=== PATIENT | male | born 1960 | race Caucasian/White ===

== ENCOUNTER 2019-06-18 11:26 | Observation (INO) ==
--- NOTE | 2019-06-18 12:00 | EKG Report ---
Test Performed on : 06/18/2019 11:29:02 AM Test Reason : CHEST PAIN Blood Pressure : / mmHG Vent. Rate : 102 BPM Atrial Rate : 102 BPM P-R Int : 152 ms QRS Dur : 084 ms QT Int : 342 ms P-R-T Axes : 022 041 027 degrees QTc Int : 445 ms Sinus tachycardia. Otherwise normal ECG No previous ECGs available Unconfirmed Result
[2019-06-18 12:11] LABS: BASO# 0.03 X1000 (0.0-0.2); BASO% 0.8 % (0.0-0.8); EOS# 0.04 X1000 (0.0-0.7); HEMATOCRIT 46.7 % (42.0-52.0); HEMOGLOBIN 15.5 g/dL (14.0-18.0); LYMPH# 0.74 X1000 (1.2-3.4); LYMPH% 18.7 % (20.5-51.1); MCHC 33.2 g/dL (33-37); MCV 93.4 FL (81-99); MONO# 0.35 X1000 (0.11-0.59); MONO% 8.9 % (1.7-9.3); NEUT# 2.79 X1000 (1.4-6.5); NEUT% 70.6 % (42.2-75.2); PLT 216 X1000 (130-400); RDW 14.2 % (11.5-14.5); WBC 3.95 X1000 (4.8-10.8)
[2019-06-18 12:14] LABS: INR 0.92; PROTIME 12.4 Seconds (11.0-16.0)
[2019-06-18 12:15] LABS: PTT 23.7 Seconds (22.3-41.8)
--- NOTE | 2019-06-18 12:17 | Diag Imaging Result Doc PS360 ---
CHEST-1 VIEW - 06/18/2019 INDICATION: cp COMPARISON: None FINDINGS: The lungs are normally expanded and clear. Heart size and mediastinal contours are normal. No pneumothorax or pleural effusion. IMPRESSION: Negative exam. Electronically signed by Rolf Preciado 06/18/2019 12:15 PM
[2019-06-18 12:29] LABS: AGAP 11; ALB/GLOB RATIO 1.7; ALBUMIN 4.2 g/dL (3.5-5.0); ALKALINE PHOSPHATASE 57 U/L (32-122); BUN 15 mg/dL (8-22); CALCIUM 8.9 mg/dL (8.8-10.2); CHLORIDE 104 mmol/L (98-107); COSMO 282; CREATININE 1.2 mg/dL (0.7-1.2); ESTIMATED GFR > 60; GLUCOSE 168 mg/dL (70-104); GOT 19 U/L (10-34); GPT 23 U/L (10-44); POTASSIUM 4.6 mmol/L (3.5-5.1); SODIUM 139 mmol/L (136-145); TCO2 24 mmol/L (25-35); TOTAL BILIRUBIN 0.22 mg/dL (0.20-1.00); TOTAL PROTEIN 6.7 g/dL (6.3-8.3)
[2019-06-18] MEDS ORDERED: ZOFRAN IV PRN (15:01)
[2019-06-18] MEDS ORDERED: GLUCOPHAGE PO SCH (17:00)
--- NOTE | 2019-06-18 18:14 | HISTORY AND PHYSICAL ---
ADDENDUM: Mr. Green has been admitted for chest pain. According to him, he has been having this chest pressure for the past 3 days, which has been on and off. However, this morning he was at work and he had this terrible retrosternal chest pain that radiated to his neck and the left arm. It made him feel nauseated and dizzy, so he came to the emergency room where he was evaluated. On presentation, his blood pressure was 126/86. OBJECTIVE: His current physical exam for the most part is unremarkable.Lungs: Clear to auscultation. No crepitations. No rhonchi. Cardiovascular: Regular rate and rhythm. Abdomen: Soft, nontender. Bowel sounds present. Extremities: No pedal edema. 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 LABORATORY DATA: CBC has been reviewed. Chemistry is also unremarkable. Patient's glucose is 168. So far, his troponin 2 times have all been below normal range. His TSH is 1.10. DIAGNOSTIC STUDIES: His chest x-ray which was done was negative. His EKG also shows normal sinus rhythm, normal axis, with no ST-segment abnormality or T-waves abnormality. ASSESSMENT: 1. Mr. Green is a 58-year-old with multiple coronary risk factors, including diabetes, hypertension, obesity, chronic tobacco use, and a family history of heart attack. He comes in with atypical chest pain which is concerning for coronary artery disease. We are going to trend his troponins. We will repeat his EKG in the morning and get a stress test. Depending on the result, we will get Cardiology to evaluate him as well. 2. Diabetes mellitus. We will withhold the metformin for now and use just insulin regimen. We will also get his A1c. I think the patient can be discharged back to his metformin if there are not any contraindications. 3. Hypertension, controlled on losartan. 4. Tobacco use and abuse. Patient has been counseled. 5. Please refer to the details of the History and Physical which have been dictated by the DENT REMOVER in the chart. cc: Minh Negrete MD
--- NOTE | 2019-06-18 18:28 | HISTORY AND PHYSICAL ---
CHIEF COMPLAINT: Chest pain. HPI: This is a 58-year-old gentleman with a history of diabetes mellitus, hypertension, who presented to the emergency room complaining of chest pain that radiates to his left neck and left jaw, and left arm. He states that it feels like a tightness type pain, that will last about 10 to 15 minutes and is spontaneously resolved. He has had some episodes of shortness of breath during this time. He denied any palpitations, any syncope, any nausea. PAST MEDICAL HISTORY: 1. Diabetes mellitus. 2. Hyperlipidemia. 3. Hypertension. PAST SURGICAL HISTORY: Cervical fusion, appendectomy, and left shoulder surgery. SOCIAL HISTORY: He denies any alcohol, tobacco, or illicit drug use. ALLERGIES: No known drug allergies. HOME MEDICATIONS: Xanax, levothyroxine, losartan, and metformin. Doses will be verified by the nursing staff. FAMILY HISTORY: Positive for hypertension and diabetes in parents and grandparents. REVIEW OF SYSTEMS: Discussed with the patient with pertinent positives stated in HPI. He denied any syncope or dizziness, any palpitations, any productive cough, fever, chills, PND, orthopnea, any nausea, vomiting, diarrhea, constipation, black or bloody vomitus or stools, any hematuria, dysuria, frequency, urgency. PHYSICAL EXAMINATION: GENERAL: This is a 58-year-old gentleman who is sitting up on the stretcher in the emergency room in no distress. VITAL SIGNS: Blood pressure is 136/90 with a heart rate of 89, respirations are 18, temperature is 98 degrees oral with room air saturations 95 to 98 percent. EYES: Pupils equal, round, react to light. EOMs are intact sclerae anicteric. HEENT: Head is normocephalic, atraumatic. Mucous membranes are moist. NECK: Supple with trachea midline. CARDIOVASCULAR: Regular rate and rhythm. S1, S2 appreciated. Calves are nontender bilateral with peripheral pulses palpable x4 extremities. PULMONARY: Breath sounds are clear. No increased work of breathing noted. GASTROINTESTINAL: Abdomen is soft, nontender, nondistended with bowel sounds in all 4 quadrants. GENITOURINARY: No CVA or suprapubic tenderness. NEUROLOGIC: He is alert and oriented x3. SKIN: Warm and dry. LABS: WBC is 3.9 with hemoglobin 15.5, hematocrit 46.7, and platelets 216,000. Sodium 139, potassium 4.6, BUN 15, creatinine 1.2 with a glucose of 168. Troponin is 0.014 with CPK 155. TSH is 1.10. Chest x-ray: Lungs are normally expanded and clear. Heart size and mediastinal contours are normal. No pneumothorax or pleural effusion. EKG is sinus tachycardia at a rate of 103. ASSESSMENT AND PLAN: 1. Chest pain. 2. Shortness of breath. 3. Diabetes mellitus. 4. Hypertension. 5. Hypothyroidism. PLAN: The patient will be admitted to the hospital and placed on telemetry. trend cardiac profile and troponin. EKG, Cardiac profile ans troponin tonight at 8 cardiac profile and troponin,lipid profile and TSH ,CBC, CMP, hemoglobin A1c. in AM. NPO after midnight for myocardial perfusion scan as long as cardiac enzymes are negative. pattern blood glucose with sliding scale insulin. The plan was discussed with Dr. Negrete. Further treatments pending hospital course. Dictated by DAPHNE Adhikari for Minh Negrete MD cc: DAPHNE Adhikari MD [facility]
--- NOTE | 2019-06-18 18:34 | EKG Report ---
Test Performed on : 06/18/2019 6:06:33 PM Test Reason : CP Blood Pressure : / mmHG Vent. Rate : 075 BPM Atrial Rate : 075 BPM P-R Int : 156 ms QRS Dur : 094 ms QT Int : 386 ms P-R-T Axes : 038 054 047 degrees QTc Int : 431 ms Normal sinus rhythm. Normal ECG When compared with ECG of 18-JUN-2019 11:29, (Unconfirmed) No significant change was found Confirmed by Ben Morris MD ([id number]) on 06/19/2019 7:32:15 AM
[2019-06-18] MEDS: HUMALOG SUBQ SCH (22:10)
[2019-06-19 05:50] LABS: HEMATOCRIT 47.8 % (42.0-52.0); HEMOGLOBIN 16.2 g/dL (14.0-18.0); MCH 31.8 PG (27-31); MCHC 33.9 g/dL (33-37); MCV 93.7 FL (81-99); MPV 11.4 FL (7.4-10.4); RBC 5.1 XMIL (4.7-6.1); RDW 14.5 % (11.5-14.5); WBC 4.2 X1000 (4.8-10.8)
[2019-06-19 06:44] LABS: AGAP 13; ALB/GLOB RATIO 1.8; ALBUMIN 4.2 g/dL (3.5-5.0); ALKALINE PHOSPHATASE 69 U/L (32-122); BUN 14 mg/dL (8-22); CALCIUM 8.3 mg/dL (8.8-10.2); CHLORIDE 104 mmol/L (98-107); CHOLESTEROL 233 mg/dL (0-200); COSMO 284; CREATININE 0.9 mg/dL (0.7-1.2); ESTIMATED GFR > 60; GLUCOSE 173 mg/dL (70-104); GOT 16 U/L (10-34); GPT 19 U/L (10-44); HDL 23 mg/dL (35-55); POTASSIUM 4.1 mmol/L (3.5-5.1); SODIUM 140 mmol/L (136-145); TCO2 23 mmol/L (25-35); TOTAL BILIRUBIN 0.22 mg/dL (0.20-1.00); TOTAL PROTEIN 6.6 g/dL (6.3-8.3); TRIGLYCERIDES 1040 mg/dL (39-160); VLDL 208 mg/dL
[2019-06-19] MEDS: HUMALOG SUBQ SCH ×4 (06:51→21:16)
[2019-06-19] MEDS ORDERED: PRILOSEC PO SCH (07:00)
--- NOTE | 2019-06-19 07:15 | EKG Report ---
Test Performed on : 06/19/2019 07:05:03 AM Test Reason : CP Blood Pressure : / mmHG Vent. Rate : 077 BPM Atrial Rate : 077 BPM P-R Int : 156 ms QRS Dur : 090 ms QT Int : 404 ms P-R-T Axes : 047 084 056 degrees QTc Int : 457 ms Sinus rhythm. with premature atrial complexes. Otherwise normal ECG Confirmed by Alexandra CAMPOS, Ben Brown ([id number]) on 06/19/2019 7:32:37 AM
[2019-06-19] MEDS ORDERED: LEXISCAN ONE (08:41)
[2019-06-19] MEDS: COZAAR PO SCH (11:40)
[2019-06-19] MEDS: SYNTHROID PO SCH (11:41)
--- NOTE | 2019-06-19 13:17 | PROGRESS NOTE ---
DATE: 06/19/2019 SUBJECTIVE: This morning, Mr. Green refers to be doing well. He denies any new complaints. However, he said he did have mild chest pain early on today, and it appears that when was on the treadmill, he also had another episode of chest pain. OBJECTIVE: Current Vital Signs: Blood pressure is 157/96, pulse of 93, respirations 14, temperature 97.8 degrees. General: Mr. Green is a 58-year-old gentleman. He is in bed. No distress. HEENT: Mucosa is pink and moist. Anicteric. Acyanotic. Neck: Supple. Chest: Clear to auscultation. Cardiovascular: Regular rate and rhythm. GI: Abdomen was soft, nontender. Bowel sounds present. Extremities: No pedal edema. 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 LABORATORY DATA: WBC is 4.30, hemoglobin is 16.2, platelet count of 226,000. Chemistry is also reviewed and is completely within normal range. Glucose is 172. The patient's A1c is 7.0. Triglycerides is 1040, cholesterol is 2300, the patient's HDL is 23. ASSESSMENT: 1. Atypical chest pain with multiple risk factors concerning for coronary artery disease. The patient refers to have had some chest pain during the stress test. We therefore will consult Cardiology to evaluate him, and will also be pending the stress test results. 2. Diabetes mellitus with A1c of 7.0. The patient is only on metformin at home, which I think is adequate for now. We will continue with insulin regimen, and resume her oral medication once she is ready for discharge. 3. Dyslipidemia with severe triglyceridemia. The patient has been started on statin and fenofibrate. 4. Hypertension is controlled. 5. Tobacco use and abuse prior to hospitalization. The patient is counseled. In general, I think Mr. Green is doing well. He seems to have had a mild episode of chest pain during the stress test. We are getting Cardiology to see him. We are also pending the official report on the stress test. His lipid panel is remarkably abnormal. He has been started on medications, and will be pending recommendations from Cardiology. cc: Minh Negrete MD
[2019-06-19] MEDS: LIPITOR PO SCH (13:51)
[2019-06-19] MEDS: TRICOR PO SCH (13:52)
--- NOTE | 2019-06-19 16:00 | Diag Imaging Result Document ---
PROCEDURE NAME: MYOCARDIAL PERF SCAN, STR/REST - 06/19/2019 PROCEDURE: Rest/stress walking Lexiscan myocardial perfusion study. INDICATION: Chest pain, coronary heart disease. DESCRIPTION: The patient came into the nuclear laboratory, received resting injection of technetium 99 sestamibi 14.3 mCi. Multiple tomographic views of the cardiac structures were obtained at rest. Subsequently, the patient walked on the treadmill. He walked on the treadmill using Ramon protocol for 8 minutes 15 seconds. He stopped the treadmill because of chest pain. He only achieved a maximum rate of 115 beats per minute, which was deemed to be way too low for the test to be diagnostic. The ECG showed no ischemic changes. The peak blood pressure at that time was 175/90. The workload was close to 10 METS. At that point, the decision was made to switch from treadmill Ramon protocol to a walking Lexiscan protocol. He received 0.4 mg of Lexiscan while walking on the treadmill. The heart rate increased from 96 to 122 beats per minute, blood pressure actually came down from 182/85 to 152/82. The patient reported chest pain. The ECG showed no again no ischemic changes. Following completion of the test, the heart rate and blood pressure returned back to baseline. The chest pain resolved during the recovery phase. In summary, the electrocardiographic response to a treadmill exercise protocol was nondiagnostic, however the patient did complain of chest pain. With the walking Lexiscan protocol, the same thing happened. He did develop chest pain without ischemic changes. SUMMARY OF THE MYOCARDIAL PERFUSION PORTION OF THE STUDY: Poststress tomographic views of the left ventricle showed moderately extensive moderately severe inferior wall defect. This involves the left basal to mid portion of the inferior wall. There is a trivial defect at the apex of the left ventricle. The rest images suggest partial reversibility in the mid section of the defect. Polar plots revealed the same. There is suggestion of a basal inferior scar with minimal degree of ischemia in the mid section of the inferior wall. The possibility of attenuation artifact cannot be entirely excluded. The patient is 224 pounds. Gated SPECT shows preserved ejection fraction of 70%. Lung/heart ratio is 0.39. TID is 0.93. SUMMARY: This study shows: 1. Equivocal exercise ECG stress test. The patient achieved less than 85% of maximum predicted heart rate for his age, switched to walking Lexiscan protocol. He did develop chest pain both with the treadmill protocol and with the walking Lexiscan protocol, however, no ischemia was noted on the ECG. The chest pain was very suspicious for angina pectoris. 2. Abnormal poststress myocardial perfusion scan. There is scintigraphic suggestion of a basal to mid inferior wall scar plus mild degree of inducible ischemia in the mid section of the scar. 3. Preserved left ventricular systolic function, ejection fraction of 70% with normal ventricular volumes, no wall motion abnormality. The study indicates increased risk for ischemic events. cc: MD Minh Cortez MD
[2019-06-19] MEDS ORDERED: LOVENOX SUBQ ONE (23:00)
--- NOTE | 2019-06-20 00:05 | CONSULTATION ---
DATE OF CONSULTATION: 06/19/2019 IMPRESSION: 1. Chest discomfort suspicious for angina. 2. Abnormal Lexiscan myocardial perfusion study. Interpreted is suggestion of a basal inferior scar with mild with minimal degree of ischemia in the mid section of the inferior wall. The patient had normal left ventricular ejection fraction. He had chest discomfort with stress protocol which was a walking Lexiscan protocol that was felt to be suspicious for angina. Exercise EKG was equivocal. 3. Chronic cigarette use. 4. Type 2 diabetes mellitus. 5. Mixed hyperlipidemia. 6. Hypertension. RECOMMENDATIONS: 1. Continue aspirin daily. 2. Given clinical presentation and abnormal myocardial perfusion study, favor further evaluation with cardiac catheterization selective coronary angiography. The rationale for this approach was thoroughly discussed with the patient and his including potential hazards. The patient also advised that should he require coronary angioplasty/stenting, transfer to [facility] will be needed. The patient strongly expressed desire to transfer to [facility] to have the procedure done there as he lives in [place] and prefers to have his procedure all in one day. This is certainly reasonable and the patient will be made NPO tonight after midnight, and [facility] will be contacted in the a.m. to try to expedite transfer. 3. Agree with initiation of atorvastatin and fenofibrate. HISTORY OF PRESENT ILLNESS: This 58-year-old white male with a past history of type 2 diabetes mellitus, hypertension, mixed hyperlipidemia and chronic cigarette use was admitted to the emergency room yesterday after he presented with chest pain suspicious for angina. He lives in [place]. 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 While walking in the course of his work he felt abrupt onset of substernal chest pressure with radiation to the jaw and teeth. There was also radiation to the left upper extremity. He felt quite uncomfortable. There was some associated shortness of breath. The symptoms lasted perhaps 10 minutes and resolved spontaneously. He relates some occasional milder instances of similar chest discomfort over the last 3 days. He has had some brief recurrence of chest discomfort while in the hospital. He underwent stress myocardial perfusion study today, which was abnormal prompting Cardiology consultation. PAST MEDICAL HISTORY: 1. Type 2 diabetes mellitus. 2. Hyperlipidemia. 3. Hypertension. PAST SURGICAL HISTORY: Includes cervical fusion surgery, appendectomy, and unspecified left shoulder surgery. ALLERGIES: He has no known drug allergies. MEDICATIONS PRIOR TO ADMISSION: As listed. SOCIAL HISTORY: He is . He lives in [place], [place]. 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 He smokes a pack of cigarettes daily. He drinks an infrequent alcoholic beverage. FAMILY HISTORY: Positive for coronary disease. REVIEW OF SYSTEMS: Pulmonary: Noncontributory beyond the history of present illness. Gastrointestinal: Noncontributory beyond the history of present illness. Constitutional: Noncontributory beyond the history of present illness. Remainder of the review of systems is negative/noncontributory beyond the history present illness with 14 total systems reviewed. PHYSICAL EXAMINATION: General: This is a overweight middle-aged white male in no distress on room air. Vital signs: Blood pressure 106/56, heart rate 85, oxygen saturation 99% on room air. HEENT: Extraocular muscles appear intact. Mucous membranes are moist. Neck: Supple. No jugular venous distention. There were no carotid bruits. Chest: Clear to auscultation bilaterally. Cardiac: Reveals a regular rate and rhythm without appreciable murmur or gallop. Abdomen: Soft. Bowel sounds normal. Extremities: Without edema. Neurologic: Reveals him to be alert and fully oriented. Speech is fluent. He moves all 4 extremities equally well. Skin: Warm and dry. Psychiatric: Reveals his mood to be appropriate. IMAGING DATA: Twelve lead EKG obtained 06/18/2019 on admission demonstrates sinus tachycardia at 102 beats per minute, and low voltage QRS in limb leads. LABORATORY DATA: Includes white blood cell count of 4.2, hematocrit 47.8, hemoglobin 16.2, platelet count 226,000. Sodium 140, potassium 4.1, chloride 104, carbon dioxide 23, BUN 14, creatinine 0.9, glucose 173, hemoglobin A1c 7.0, CPK 155, follow up CPK 125. Initial troponin T 0.014, with follow up troponin Ts of 0.021, 0.024, and 0.030. Protime 12.4, INR 0.92, PTT 23.7. Triglycerides 1140, total cholesterol 233, the LDL cholesterol calculated 208, HDL cholesterol 23. Walking Lexiscan sestamibi study reports equivocal exercise ECG stress, abnormal myocardial perfusion study reporting mixed scar inducible ischemia in the inferior wall, and normal left ventricular ejection fraction. The patient had chest symptoms with stress protocol consistent with angina. cc: Salas Fabian MD
[2019-06-20] MEDS: ASPIRIN PO SCH ×2 (01:02→08:04)
[2019-06-20 05:16] LABS: INR 0.92; PROTIME 12.4 Seconds (11.0-16.0)
[2019-06-20 05:17] LABS: PTT 26.8 Seconds (22.3-41.8)
[2019-06-20 05:33] LABS: AGAP 12; BUN 16 mg/dL (8-22); CHLORIDE 105 mmol/L (98-107); COSMO 287; CREATININE 0.9 mg/dL (0.7-1.2); ESTIMATED GFR > 60; GLUCOSE 215 mg/dL (70-104); MAGNESIUM 2.3 mg/dL (1.5-2.7); POTASSIUM 3.9 mmol/L (3.5-5.1); SODIUM 140 mmol/L (136-145); TCO2 23 mmol/L (25-35)
[2019-06-20] MEDS: HUMALOG SUBQ SCH ×3 (06:15→16:00)
--- NOTE | 2019-06-20 06:48 | EKG Report ---
Test Performed on : 06/20/2019 06:42:08 AM Test Reason : [facility] Blood Pressure : / mmHG Vent. Rate : 077 BPM Atrial Rate : 077 BPM P-R Int : 154 ms QRS Dur : 092 ms QT Int : 372 ms P-R-T Axes : 062 099 -08 degrees QTc Int : 420 ms Normal sinus rhythm. Rightward axis Abnormal QRS-T angle, consider primary T wave abnormality Abnormal ECG Confirmed by Alexandra CAMPOS, Ben Brown ([id number]) on 06/20/2019 7:45:20 AM
[2019-06-20] MEDS: SYNTHROID PO SCH (08:03)
[2019-06-20] MEDS: LIPITOR PO SCH (08:03)
[2019-06-20] MEDS: TRICOR PO SCH (08:03)
[2019-06-20] MEDS: COZAAR PO SCH (08:04)
--- NOTE | 2019-06-20 13:35 | PROVIDER DOCUMENTATION ---
This chart was entered by Mariaelena Dozier Scribe, acting as scribe for Jony Caldera MD. HPI-Chest Pain - General Chief Complaint: Chest Pain Stated Complaint: CP Time Seen by Provider: 06/18/19 11:43 Source: patient Allergies/Adverse Reactions: Patient Allergies Allergy/AdvReac Type Severity Reaction Status Date / Time No Known Allergies Allergy Verified 06/18/19 13:45 Home Medications: Home Medication List Medication Instructions Recorded Confirmed Last Taken Type Alprazolam 1 mg PO BID 06/18/19 06/18/19 06/18/19 History Levothyroxine [Synthroid] 225 microgm PO DAILY 06/18/19 06/18/19 06/18/19 History Losartan Potassium 100 mg PO DAILY 06/18/19 06/18/19 06/18/19 History Metformin HCl 500 mg PO BID 06/18/19 06/18/19 06/18/19 History - History of Present Illness-CP Nature of Presenting Problem: Patient is a 58 year old male who presents with central chest pain. States chest pain radiates to left side neck, left arm and jaw. Report nausea and shortness of breath. States symptoms have been present for 3 days. Denies taking nitro and aspirin today. Location: reports: central Chest Pain Radiation: reports: jaw, arms (left), neck (left) Quality of Pain: reports: aching Severity in ED: mild Onset/Duration: 3 days ago Timing: still present Context/Activities at Onset: reports: light activity Associated Symptoms: reports: nausea, shortness of breath Nitro Today/Relief: no nitro taken today Aspirin Treatment Today: no aspirin today Similar Symptoms Previously?: Yes Recently Seen Here or By Another Healthcare Provider: No Review of Systems - Adult - REVIEW OF SYSTEMS - ADULT Constitutional: reports: no symptoms reported Eyes: reports: no symptoms reported Ears, Nose, Mouth & Throat: reports: no symptoms reported Cardiovascular: reports: see HPI, chest pain. denies: heart murmur, palpitations Respiratory: reports: see HPI, shortness of breath. denies: cough, wheezing Gastrointestinal: reports: see HPI, nausea. denies: abdominal pain, diarrhea, vomiting Genitourinary: reports: no symptoms reported Musculoskeletal: reports: no symptoms reported Integumentary: reports: no symptoms reported Neurological: reports: no symptoms reported Psychiatric: reports: no symptoms reported Endocrine: reports: no symptoms reported Hematologic/Lymphatic: reports: no symptoms reported Allergic/Immunologic: reports: no symptoms reported All Other Systems: Reviewed and Negative Past History - Adult - PAST MEDICAL HISTORY-ADULT Review of Records: reports: Old Records Reviewed, Nursing Assessment Review, Medications Reviewed, Social history reviewed & non-contributory. Major Childhood Illnesses: reports: denies history Cardiovascular: reports: HTN Respiratory: reports: denies history Gastrointestinal: reports: denies history Obstetrical/Gynecological: reports: denies history Genitourinary: reports: denies history Musculoskeletal: reports: denies history Neurological: reports: denies history Psychiatric: reports: denies history Endocrine/Immune: reports: Diabetes, thyroid disorder Other Conditions: reports: denies history - PRIOR SURGERIES/PROCEDURES Surgical/Procedure History: reports: reviewed, not pertinent - IMMUNIZATION STATUS Childhood Immunizations: See Nurse Assessment Flu Vaccine: See Nurse Assessment - FAMILY HISTORY Family History: reviewed, not pertinent - SOCIAL HISTORY Smoking: denies Substance Use: denies Living Situation: family Physical Exam-General - PHYSICAL EXAM-ADULT Initial Vital Signs Reviewed: Yes - CONSTITUTIONAL General Appearance: alert, no apparent distress. negative: lethargic - HEAD, EARS, NOSE, MOUTH & THROAT HENMT: normocephalic/atraumatic, moist mucous membranes. negative: angioedema - RESPIRATORY Respiratory: chest non-tender, lungs clear, normal breath sounds. negative: crackles, rales, stridor - CARDIOVASCULAR Cardiovascular: normal peripheral pulses, regular rate, rhythm. negative: tachycardia - GASTROINTESTINAL (ABDOMEN) Abdominal Exam: normal bowel sounds, non tender, soft. negative: guarding, rebound - MUSCULOSKELETAL Extremity: normal inspection. negative: deformity, swelling - SKIN Integumentary: normal color, normal turgor, warm/dry. negative: diaphoresis, ecchymosis, jaundice - NEUROLOGIC Neurologic: grossly normal. negative: aphasia, facial droop - PSYCHIATRIC Psych/Mental Status: normal mood/affect, oriented x 3. negative: anxious - HEART Score HEART Score: History: Slightly Suspicious HEART Score: ECG: Non-Specific Repolarization Disturbance/LBBB/PM HEART Score: Age: > or = 65 Years HEART Score: Risk Factors for Atherosclerotic Disease: 1 or 2 Risk Factors HEART Score: Troponin: < or = Normal Limit Total HEART Score:: 4 Progress - PLAN OF CARE/RESULTS Progress/Plan/Lab Results: Vital Signs - 8 hr 06/18/19 11:36 06/18/19 12:20 06/18/19 12:21 Temperature 98.0 F Pulse Rate 99 H 86 92 H Respiratory Rate 16 14 18 Blood Pressure 129/86 116/92 O2 Sat by Pulse Oximetry 98 95 95 06/18/19 12:30 06/18/19 12:31 06/18/19 12:45 Temperature Pulse Rate 93 H 89 91 H Respiratory Rate 20 12 18 Blood Pressure 135/85 O2 Sat by Pulse Oximetry 96 96 96 06/18/19 13:00 06/18/19 13:01 06/18/19 13:15 Temperature Pulse Rate 85 86 83 Respiratory Rate 14 16 19 Blood Pressure 110/80 O2 Sat by Pulse Oximetry 95 95 95 06/18/19 13:30 06/18/19 13:31 Temperature Pulse Rate 94 H 92 H Respiratory Rate 18 14 Blood Pressure 145/95 O2 Sat by Pulse Oximetry 97 97 Laboratory Results - last 24 hr 06/18/19 06/18/19 06/18/19 11:57 11:57 11:57 WBC 3.95 L RBC 5.00 Hgb 15.5 Hct 46.7 MCV 93.4 MCH 31.0 MCHC 33.2 RDW Std Deviation 14.2 Plt Count 216 MPV 11.0 H Immature Gran % (Auto) 0.0 Neut % (Auto) 70.6 Lymph % (Auto) 18.7 L [place] % (Auto) 8.9 Eos % (Auto) 1.0 Baso % (Auto) 0.8 Immature Gran # (Auto) 0.00 Neut # (Auto) 2.79 Lymph # (Auto) 0.74 L [place] # (Auto) 0.35 Eos # (Auto) 0.04 Baso # (Auto) 0.03 PT INR PTT (Actin FS) Sodium 139 Potassium 4.6 Chloride 104 Carbon Dioxide 24 L Anion Gap 11 BUN 15 Creatinine 1.2 Estimated GFR/1.73 m2 > 60 BUN/Creatinine Ratio 13 Glucose 168 H Calculated Osmolality 282 Calcium 8.9 Total Bilirubin 0.22 AST 19 ALT 23 Alkaline Phosphatase 57 Troponin T Kaz-Z-Elfxdqkcjeh Pept 25 Total Protein 6.7 Albumin 4.2 Globulin 2.5 Albumin/Globulin Ratio 1.7 TSH 06/18/19 06/18/19 06/18/19 11:57 11:57 11:57 WBC RBC Hgb Hct MCV MCH MCHC RDW Std Deviation Plt Count MPV Immature Gran % (Auto) Neut % (Auto) Lymph % (Auto) [place] % (Auto) Eos % (Auto) Baso % (Auto) Immature Gran # (Auto) Neut # (Auto) Lymph # (Auto) [place] # (Auto) Eos # (Auto) Baso # (Auto) PT 12.4 INR 0.92 PTT (Actin FS) 23.7 Sodium Potassium Chloride Carbon Dioxide Anion Gap BUN Creatinine Estimated GFR/1.73 m2 BUN/Creatinine Ratio Glucose Calculated Osmolality Calcium Total Bilirubin AST ALT Alkaline Phosphatase Troponin T 0.014 Ehk-C-Tthzqrjmojr Pept Total Protein Albumin Globulin Albumin/Globulin Ratio TSH 1.10 Orders Category Date Time Status CHEST-1 VIEW [RAD] Stat Exams 06/18/19 11:44 Completed CBC WITH ELECTRONIC DIFF [HEME] Stat Lab 06/18/19 11:57 Completed COMPREHENSIVE METABOLIC PANEL [CHEM] Stat Lab 06/18/19 11:57 Completed FREE T4 Stat Lab 06/18/19 11:55 Received PRO B-NATRIURETIC PEPTIDE Stat Lab 06/18/19 11:57 Completed PT [PROTIME WITH INR] [COAG] Stat Lab 06/18/19 11:57 Completed PTT [COAG] Stat Lab 06/18/19 11:57 Completed TROPONIN T Stat Lab 06/18/19 11:57 Completed TSH Stat Lab 06/18/19 11:57 Completed EKG [EKG] Stat Ther 06/18/19 11:42 Draft Result Diagrams: 06/18/19 11:57 06/18/19 11:57 - EKG 1 Time of EKG reading by physician:: 11:29 EKG Read and Signed by:: Jony Caldera EKG Interpretation (*Must complete 3 of following elements*): Abnormal Rate: 102 Rhythm: sinus tachycardia [place]: normal [place] Interval: normal Comments: otherwise normal ECG - XRAY 1 XRAY Study: Chest Impression: See EMR Report (CHEST-1 VIEW - 06/18/2019 INDICATION: cp COMPARISON: None FINDINGS: The lungs are normally expanded and clear. Heart size and mediastinal contours are normal. No pneumothorax or pleural effusion. IMPRESSION: Negative exam. Electronically signed by Rolf Precidao 06/18/2019 12:15 PM 06/18/19 1215 Interpreting Physician: Rolf Preciado MD Dictated Date/Time: 06/18/19 1215 cc: Jony Caldera MD; None,PCP) - CONSULTS/PCP/HOSPITALIST Notification #1 *Consult/PCP/Hospitalist*: [facility] Time Discussed: 13:32 Reason/Comments: Dr. Caldera consulted with [facility]. Consult Disposition: other ([facility] states they do not have any beds available.) #2 Consult: [employer] TECHNICIAN for Hospitalist Time Discussed: 13:47 Consult Disposition: Will see in ED, Admit Departure - Departure Date of Disposition Decision: 06/18/19 Time of Disposition Decision: 13:46 DIAGNOSIS: Chest pain Disposition: ADMITTED INPATIENT 09 Certified Medical Emergency: Emergent Condition: Fair Referrals and Follow-Ups: None,PCP [Primary Care Provider] - - Critical Care Note This patient required my direct & personal management of CC.: No Attestation - Physician/ SAI Attestation Patient care was provided by Advanced Practice Provider:: No The physician spent face to face time with patient:: Yes Advanced Practice Provider documentation review:: Supervising physician onsite and consulted in the evaluation and care of this patient. The physician did have a face to face encounter with the patient. This chart was documented by the indicated scribe, (Mariaelena Dozier Scribe) and accurately reflects the services I performed and decisions made by me, Jony Caldera MD, as attested by the provider's signature.
[2019-06-20] MEDS ORDERED: NITROGLYCERIN SL PRN (15:33)
[2019-06-20] MEDS ORDERED: MORPHINE IV PRN (15:34)
--- NOTE | 2019-06-20 16:10 | PROGRESS NOTE ---
DATE: 06/20/2019 SUBJECTIVE: Patient continues without recurrence of chest discomfort, shortness of breath on room air. He is awaiting transfer to [facility] for cardiac catheterization procedure. He reiterates his preference to have this performed in [place]. OBJECTIVE: Vital Signs: Blood pressure 126/73, heart rate 81, oxygen saturation 98% on room air. Neck: There is no significant jugular venous distention. Chest: Clear to auscultation bilaterally. Cardiac Exam: Reveals a regular rate and rhythm without appreciable murmur or gallop. Extremities: Without edema. LAB DATA: Includes a pro time 12.4, INR 0.92. PTT 26.8. Sodium 140, potassium 3.9, chloride 105, carbon dioxide 23. BUN 16, creatinine 0.9, glucose 215. IMPRESSION: 1. Recent chest discomfort suspicious for angina. 2. Abnormal Lexiscan myocardial perfusion study demonstrating inferior wall perfusion abnormality. 3. Type 2 diabetes mellitus. 4. Hyperlipidemia, mixed. 5. Chronic cigarette use. 6. Hypertension. RECOMMENDATIONS: 1. Continue aspirin p.o. daily. 2. Transfer to [facility] when available to have cardiac catheterization/coronary angiography there. cc: Salas Fabian MD
[2019-06-20 17:35] VITALS: BP 133/96
--- NOTE | 2019-06-20 23:09 | DISCHARGE SUMMARY ---
ADMISSION DATE: 06/18/2019 DISCHARGE DATE: 06/20/2019 DISPOSITION: [facility]. CONSULTATION DURING ADMISSION: Cardiology was consulted, patient was seen by Dr. Fabian. INVASIVE PROCEDURES DURING ADMISSION: Left heart catheterization was planned but was not done, was deferred to be done at [facility]. IMAGING STUDIES OF SIGNIFICANCE: 1. A chest x-ray was negative. 2. A myocardial perfusion scan showed basal to mid inferior wall scar plus mild degree of inducible ischemia in the mid section of the scar. The studies indicating increased risk for ischemic events. ADMISSION DIAGNOSES: 1. Chest pain. 2. Diabetes mellitus. 3. Shortness of breath. 4. Hypertension. 5. Hypothyroidism. DIAGNOSES AT DISCHARGE: 1. Coronary artery disease with abnormal stress test. 2. Diabetes mellitus with A1c of 7.0. 3. Dyslipidemia with severe triglyceridemia. 4. Hypertension. 5. Tobacco use and abuse prior to hospitalization. PRESENTING COMPLAINT: Chest pain. HISTORY OF PRESENTING COMPLAINT: Mr. Green is a 58-year-old male who has history of diabetes, hypertension, dyslipidemia, family history of coronary artery disease at a younger age, who presented to the emergency department because of acute onset of chest pain radiating to the left arm associated with some dizziness. He was admitted to the medical floor for cardiac risk stratification. HOSPITAL COURSE: Mr. Green was admitted to the medical floor, was given aspirin and nitroglycerin, which seems to have improved some of his pain. His troponin's were trended 4 times, they were increasing, but never became remarkably abnormal. His EKG did not show any abnormalities. However, his stress test was significantly abnormal with inducible ischemia. Initially, Cardiology was consulted and they thought they would do a left heart catheterization. However, after multiple discussions with the patient, a decision was made to actually transfer the patient to [facility] for left heart catheterization and possible cardiac intervention. Mr. Green did have some chest pain during the stress test and today I was told that he also did have a little bit of chest pain, which got resolved after he took some rest. He is being transferred to [facility] for higher level of care. TIME SPENT: For discharge is minutes is 32 minutes. cc: Minh Negrete MD
== END 2019-06-20 19:00 | disposition short-term general hospital (02) ==
LOC: EDIPHOLD 11:26 → ED 11:26 → 1N 19:04
PROVIDERS: ATTEND Internal Medicine